=== PATIENT | male | born 1995 | race Caucasian/White ===

== ENCOUNTER 2016-11-25 00:27 | Emergency (ER) | payer OTHER ==
--- NOTE | 2016-11-25 00:30 | PDOC ---
History of Present Illness - General Chief Complaint: Rash Stated Complaint: POSSIBLE INFECTION OF TATOO Time Seen by Provider: 11/25/16 00:30 - History of Present Illness Initial Comments: This otherwise healthy 21-year-old man presents with itching and mild rash around newly placed tattoo of the right forearm. Patient had a tattoo placed on the mid dorsum of the right forearm approximately 3-1/2 weeks ago. In the last several days, he has had itchiness and mildly erythematous scattered rash around the area of the tattoo. Patient had tattoo of the volar aspect of the right forearm approximately 4-1/2 weeks ago. This tattoo has no rash or itchiness. No edema/increased warmth/generalized erythema present around either tattoo. Patient has no fever/chills or other systemic complaints. Patient states that he has similar pruritic rash on sun exposed areas during the summer. Rash can be avoided if he uses sunscreen. No other history of contact dermatitis or other dermatologic issues. No history of poor wound healing or immunocompromise. No history of resistant organism infection or colonization. Past History - Past Medical History Allergies/Adverse Reactions: Allergies Allergy/AdvReac Type Severity Reaction Status Date / Time No Known Allergies Allergy Verified 11/25/16 00:29 Home Medications: Ambulatory Orders Clobetasol Prop 0.05% Top Cr [Temovate (Nf)] 30 gm TP BID #1 tube 11/25/16 - Immunization History Immunization Up to Date: Yes - Psycho/Social/Smoking Cessation Hx Anxiety: No Suicidal Ideation: No Smoking Status: No Smoking History: Current some day smoker Have you smoked in the past 12 months: Yes Number of Cigarettes Smoked Daily: 1 'Breaking Loose' booklet given: 03/18/16 Hx Alcohol Use: No Drug/Substance Use Hx: No Substance Use Type: None Review of Systems - Review of Systems Able to Perform ROS?: Yes Comments:: 12 point review of systems is negative except for what is noted in the history of present illness *Physical Exam - Physical Exam Comments: GENERAL: The patient is awake, alert, and fully oriented, in no acute distress. Vital signs as noted. EXTREMITIES: Normal range of motion, no edema. No clubbing or cyanosis. No cords, erythema, or tenderness. NEUROLOGICAL: Cranial nerves II through XII grossly intact. Normal speech, normal gait. PSYCH: Normal mood, normal affect. SKIN: Right forearmScattered, mildly erythematous small papules around mid dorsal forearm tattoo No edema/generalized erythema/increased warmth/ lymphangitic streaking from dorsal tattoo Tattoo on volar aspect of right forearm has no papular rash No other rash or other skin lesion evident Progress Note - Progress Note Progress Note: Clinical presentation most consistent with localized ALLERGIC dermatitis in area of new tattoo. Since the patient has another tattoo of the volar aspect of forearm (placed approximately one month ago by other artist color separation)which is not inflamed/pruritic, ALLERGIC reaction may be related to the ink content or other aspect of the new tattoo. Clobetasol 0.5% twice a day cream to the area will be prescribed. Patient should return here if there is swelling, redness or increased pain in the area of the rash. He should follow-up with his doctor within 1 week. *DC/Admit/Observation/Transfer Diagnosis at time of Disposition: Allergic dermatitis - Discharge Dispostion Disposition: HOME Condition at time of disposition: Stable - Prescriptions Prescriptions: Clobetasol Prop 0.05% Top Cr [Temovate (Nf)] 30 gm TP BID #1 tube - Patient Instructions Printed Discharge Instructions: Contact Dermatitis Additional Instructions: Clobetasol cream 0.05% twice a day to itchy area for 2 weeks Return here or see your doctor if area becomes red/swollen/painful Follow-up with your doctor within 1 week
[2016-11-25 00:34] VITALS: BP 111/63; PULSE 78; TEMP 99.4; BMI 60.7
== END 2016-11-25 00:48 | disposition home or self-care (01) ==
LOC: FER 00:27
DX: L23.9 Allergic contact dermatitis, unspecified cause (principal); F17.210 Nicotine dependence, cigarettes, uncomplicated
CPT/HCPCS: 99281-25

== ENCOUNTER 2018-01-31 06:01 | Emergency (ER) | payer OTHER ==
[2018-01-31 06:10] VITALS: BP 155/97; PULSE 72; TEMP 97.9; BMI 62.0
[2018-01-31] MEDS ORDERED: diphenhydrAMINE HCL 50 MG CAPSULE PO ONE (06:33)
[2018-01-31] MEDS ORDERED: predniSONE 20 MG TABLET (UD) PO ONE (06:33)
[2018-01-31] MEDS ORDERED: diphenhydrAMINE HCL 50 MG CAPSULE ONE (06:33)
[2018-01-31] MEDS ORDERED: predniSONE 20 MG TABLET (UD) ONE (06:34)
--- NOTE | 2018-01-31 06:37 | PDOC ---
History of Present Illness - General Chief Complaint: Edema Stated Complaint: FEELS LIKE LIPS ARE SWOLLEN Time Seen by Provider: 01/31/18 06:15 History Source: Patient Exam Limitations: No Limitations - History of Present Illness Initial Comments: 01/31/18 06:39 This is a male who comes in complaining of some itching and swelling of his upper lip. Patient said 6 hours ago he ate hotdogs rice chicken and hot sauce and after eating that he developed the symptoms. Patient denied any shortness of breath or sensation his throat was swelling but said that his voice was briefly very raspy but now those symptoms have resolved. Patient denies history of similar symptoms in the past. Patient says he has eaten all of those foods before. He denies any shortness of breath or abdominal pain or discomfort. There is been no nausea vomiting or diarrhea. PAST MEDICAL HISTORY: no significant history PAST SURGICAL HISTORY: no significant history FAMILY HISTORY: no pertinant history SOCIAL HISTORY: Pt lives with family and is employed. MEDICATIONS: reviewed ALLERGIES: As per nursing notes Review of Systems General: No fevers or chills, no weakness, obesity HEENT: No change in vision. No sore throat,. No ear pain, swollen lip as per history of present illness CardioVascular: No chest pain or shortness of breath Respiratory:No cough, or wheezing. Gastrointestinal: no nausea, vomitting, diarrhea or constipation, No rectal bleeding Genitourinary: No dysuria, hematuria, or frequency Musculoskeletal: No joint or muscle pain or swelling Neurologic: No headache, vertigo, dizziness or loss of consciousness Psychiatric: nor depression Skin: No rashes or easy bruising Endocrine: no increased thirst or abnormal weight change Allergic: no skin or latex allergy All other systems reviewed: And negative Exam: General: Morbidly obese, well-developed individual, no acute distress HEENT: Throat: There is some mild erythema otherwise there is no angioedema of the posterior oropharynx. However there is some angioedema of the upper lip. Neck: Supple, no meningeal signs, no lymphadenopathy Eyes::Pupils equal reactive and round, extraocular motion intact Chest: Nontender to palpation Cardiac: S1-S2 normal, regular rate and rhythm, no murmurs rubs or gallops Respiratory: Lungs clear to auscultation bilateral Abdomen: Soft, nondistended, normal bowel sounds, nontender to palpation diffusely Extremities: Warm, dry, no cyanosis, clubbing, or edema Skin: No rashes Neuro: Alert and oriented x3, CN II - XII intact, nonfocal exam with normal strength, normal sensation, normal reflexes, normal gait, Psych: Normal mood and affect Care of this patient was transferred to Dr. Epps at 7 AM. Case discussed in detail with oncoming Emergency Physician including history, physical exam and ancillary studies. Oncoming Emergency Physician has assumed care for the patient and will complete the evaluation and treatment. Patient is aware of the plan. Pt is clinically unchanged and stable. 01/31/18 06:44 Past History - Past Medical History Allergies/Adverse Reactions: Allergies Allergy/AdvReac Type Severity Reaction Status Date / Time No Known Allergies Allergy Verified 11/25/16 00:29 Home Medications: Ambulatory Orders NK [No Known Home Medication] 01/31/18 COPD: No - Immunization History Immunization Up to Date: Yes - Suicide/Smoking/Psychosocial Hx Smoking Status: No Smoking History: Current some day smoker Have you smoked in the past 12 months: Yes Number of Cigarettes Smoked Daily: 3 Information on smoking cessation initiated: Yes 'Breaking Loose' booklet given: 01/31/18 Hx Alcohol Use: No Drug/Substance Use Hx: No Substance Use Type: None *Physical Exam - Vital Signs Last Vital Signs Temp Pulse Resp BP Pulse Ox 97.9 F 72 16 155/97 99 01/31/18 06:04 01/31/18 06:04 01/31/18 06:04 01/31/18 06:04 01/31/18 06:04 *DC/Admit/Observation/Transfer - Discharge Dispostion Condition at time of disposition: Stable - Referrals - Patient Instructions - Post Discharge Activity
--- NOTE | 2018-01-31 07:08 | PDOC ---
*Physical Exam - Vital Signs Last Vital Signs Temp Pulse Resp BP Pulse Ox 97.9 F 72 16 155/97 99 01/31/18 06:04 01/31/18 06:04 01/31/18 06:04 01/31/18 06:04 01/31/18 06:04 - Physical Exam Comments: 01/31/18 07:44 Gen: aaox3, nad, speaking in full sentences, tolerating secretions heent: eomi, perrl, no lip or tongue swellig, uvual midline, no oral swelling, no stridor heart: +s1s2 reg lungs: cta b/l abd: soft, nt/nd obese ext: no c/c/e ED Treatment Course - Medications Given in the ED: ED Medications Discontinued Medications Generic Name Dose Route Start Last Admin Trade Name Freq PRN Reason Stop Dose Admin Diphenhydramine HCl 50 mg 01/31/18 06:33 01/31/18 06:35 Benadryl - PO 01/31/18 06:34 50 mg ONCE ONE Administration Prednisone 60 mg 01/31/18 06:33 01/31/18 06:35 Deltasone - PO 01/31/18 06:34 60 mg ONCE ONE Administration Medical Decision Making - Medical Decision Making 01/31/18 07:45 a/p: 22yo male with upper lip swelling and itching pt signed out by the prior attneding for allergic reaction -on re-eval: swelling resolved. itching resolved pt was given benadryl and prednisone pt feels better denies new foods, lotions, soaps had hot sauce last night concern for allergic reaction will give medrol dose pack and benadyrl/pepcid for discharge discussed epipen use discussed angioedema and anaphylaxis with the patient in detail discussed allergy follow up answered all questions pt requesting to go home stable for d/c to home at this time. *DC/Admit/Observation/Transfer Diagnosis at time of Disposition: Allergic reaction - Discharge Dispostion Disposition: HOME Condition at time of disposition: Stable Decision to Admit order: No - Prescriptions Prescriptions: Diphenhydramine HCl [Benadryl -] 25 mg PO Q6H PRN #28 capsule PRN Reason: For Itching EPINEPHrine (EPI-PEN 0.3MG) [Epipen 0.3MG -] 0.3 mg IM ASDIR #2 pens Famotidine [Pepcid -] 20 mg PO DAILY #7 tablet Methylprednisolone [Medrol Dose Rod] 4 mg PO ASDIR #21 tablet - Referrals Referrals: hSashank Mahmood MD [Staff Physician] - - Patient Instructions Printed Discharge Instructions: DI for Food Allergy Additional Instructions: Please take all medications as prescribed. Please start the medrol dose rod tomorrow. Please use benadryl as needed for the itching. Please make an appointment to see the wire charger this week. If you feel your throat closing or difficulty breathing please use the epipen and call [phone]. Please return to the ED with any further concerns or complaints. Please follow up with your PMD this week. - Post Discharge Activity - Attestations Physician Attestion: 01/31/18 07:50 I, Dr. Corinne Epps, DO, attest that this document has been prepared under my direction and personally reviewed by me in its entirety. I further attest, that it accurately reflects all work, treatment, procedures and medical decision -making performed by me.
== END 2018-01-31 07:52 | disposition home or self-care (01) ==
LOC: FER 06:01
DX: T78.40XA Allergy, unspecified, initial encounter (principal); F17.210 Nicotine dependence, cigarettes, uncomplicated
CPT/HCPCS: 99282-25

== ENCOUNTER 2021-06-05 22:26 | Emergency (ER) | payer OTHER ==
[2021-06-05 22:53] VITALS: BP 132/76; PULSE 83; TEMP 98.8; BMI 62.6
[2021-06-05] MEDS ORDERED: SODIUM CHLORIDE 1,000 ML IV STA (23:02)
[2021-06-05 23:33] LABS: ALBUMIN 4.4 g/dl (3.4-5.0); BILIRUBIN,TOTAL 1.2 mg/dl (0.2-1); CALCIUM 9.2 mg/dl (8.5-10); CREATININE 0.6 mg/dl (0.55-1.3); TOT PROT 7.3 g/dl (6.4-8.2)
[2021-06-06] MEDS ORDERED: ACETAMINOPHEN 1000 MG/100 ML BAG IVPB ONE (00:23)
[2021-06-06] MEDS ORDERED: ACETAMINOPHEN INJECTION 100 ML IVPB ONE (00:28)
[2021-06-06] MEDS ORDERED: POTASSIUM CHLORIDE TABS 20 MEQ TABLET.ER (FP) PO ONE ×2 (00:29→00:31)
[2021-06-06 01:10] LABS: BASO % 0.2 % (0-2.0)
[2021-06-06 01:12] LABS: HEMOGLOBIN 14.8 GM/dL (11.7-16.9); LYMPH % 10.6 % (8-40); MCH 28.8 pg (25.7-33.7); MCHC 34.4 g/dl (32.0-35.9); MEAN CELL VOLUME 83.7 fl (80-96); MEAN PLT VOLUME 10.5 fl (7.5-11.1); NEUT % 80.2 % (42.8-82.8); PLATELET COUNT 205 10^3/uL (134-434); RBC 5.13 M/mm3 (4.00-5.60); RDW 15.5 % (11.9-15.9); WHITE BLOOD COUNT 11.9 K/mm3 (4.0-10.0)
[2021-06-10 03:06] LABS: SARS-CoV-2 NAA Detected (Not Detected)
== END 2021-06-06 01:33 | disposition home or self-care (01) ==
LOC: FER 22:26
PROC: 3E0333Z Introduction of Anti-inflammatory into Peripheral Vein, Percutaneous Approach (ICD-10-PCS; principal; 2021-06-05)
PROC: 3E0337Z Introduction of Electrolytic and Water Balance Substance into Peripheral Vein, Percutaneous Approach (ICD-10-PCS; 2021-06-05)
DX: R07.9 Chest pain, unspecified (principal); R06.02 Shortness of breath; F14.90 Cocaine use, unspecified, uncomplicated
CPT/HCPCS: 36415; 71045-TC-FY; 80053; 82550; 84484; 85025; 93005; 99285-25; C9803-CS; U0003; U0005

== ENCOUNTER 2021-07-12 01:56 | Emergency (ER) | payer OTHER ==
[2021-07-12 02:11] VITALS: BP 135/80; PULSE 80; TEMP 99; BMI 62.6
[2021-07-12] MEDS ORDERED: SODIUM CHLORIDE 1,000 ML IV STA (02:27)
[2021-07-12] MEDS ORDERED: ONDANSETRON 4 MG/2 ML VIAL IVPUSH ONE (02:27)
[2021-07-12] MEDS ORDERED: ONDANSETRON 4 MG/2 ML VIAL ONE (02:30)
[2021-07-12 03:29] LABS: BASO % 0.3 % (0-2.0); EOS % 0.2 % (0-4.5); HEMATOCRIT 45.4 % (35.4-49); HEMOGLOBIN 15.6 GM/dL (11.7-16.9); LYMPH % 11.2 % (8-40); MCH 29.2 pg (25.7-33.7); MCHC 34.4 g/dl (32.0-35.9); MEAN CELL VOLUME 84.7 fl (80-96); MEAN PLT VOLUME 10.2 fl (7.5-11.1); MONO % 4.4 % (3.8-10.2); NEUT % 83.9 % (42.8-82.8); PLATELET COUNT 242 10^3/uL (134-434); RBC 5.35 M/mm3 (4.00-5.60); RDW 16.3 % (11.9-15.9); WHITE BLOOD COUNT 10.6 K/mm3 (4.0-10.0)
[2021-07-12 03:57] LABS: CALCIUM 9.3 mg/dL (8.5-10.1)
[2021-07-12 03:58] LABS: BLOOD UREA NITROGEN 5.1 mg/dL (7-18)
[2021-07-12 04:01] LABS: CREATININE 0.6 mg/dL (0.55-1.3)
[2021-07-12 04:02] LABS: BILIRUBIN,TOTAL 0.7 mg/dL (0.2-1); TOT PROT 7.4 g/dl (6.4-8.2)
== END 2021-07-12 04:15 | disposition home or self-care (01) ==
LOC: FER 01:56
PROC: 3E033NZ Introduction of Analgesics, Hypnotics, Sedatives into Peripheral Vein, Percutaneous Approach (ICD-10-PCS; principal; 2021-07-12)
PROC: 3E0337Z Introduction of Electrolytic and Water Balance Substance into Peripheral Vein, Percutaneous Approach (ICD-10-PCS; 2021-07-12)
DX: R11.2 Nausea with vomiting, unspecified (principal)
CPT/HCPCS: 36415; 80053; 85025; 99284-25

== ENCOUNTER 2021-08-20 12:23 | Emergency (ER) | payer OTHER ==
[2021-08-20 12:33] VITALS: BP 143/87; PULSE 75; TEMP 97.8; BMI 51.7
[2021-08-20] MEDS ORDERED: ACETAMINOPHEN 325 MG TABLET (FP) PO ONE (13:02)
[2021-08-20] MEDS ORDERED: ACETAMINOPHEN 325 MG TABLET (FP) ONE (13:04)
[2021-08-20 13:31] LABS: ALBUMIN 3.8 g/dl (3.4-5.0); BILIRUBIN,TOTAL 1.5 mg/dl (0.2-1); CALCIUM 8.9 mg/dl (8.5-10); CREATININE 0.6 mg/dl (0.55-1.3); TOT PROT 6.9 g/dl (6.4-8.2)
[2021-08-20] MEDS ORDERED: LIDOCAINE 5% TOPICAL PATCH TP ONE (13:31)
[2021-08-20] MEDS ORDERED: METHOCARBAMOL 500 MG TABLET PO ONE (13:32)
[2021-08-20] MEDS ORDERED: LIDOCAINE 5% TOPICAL PATCH ONE (13:32)
[2021-08-20] MEDS ORDERED: METHOCARBAMOL 500 MG TABLET ONE (13:33)
[2021-08-20] MEDS ORDERED: SODIUM CHLORIDE 0.9% 1000 ML INFUS.BAG IV ONE (13:34)
[2021-08-20] MEDS ORDERED: ONDANSETRON 4 MG/2 ML VIAL IVPUSH ONE (13:35)
[2021-08-20] MEDS ORDERED: ONDANSETRON 4 MG/2 ML VIAL ONE (13:35)
[2021-08-20 13:41] LABS: EPITHELIAL CELLS FEW /hpf
[2021-08-20] MEDS ORDERED: POTASSIUM CHLORIDE TABS 20 MEQ TABLET.ER (FP) PO ONE ×2 (14:17→14:19)
[2021-08-20] MEDS ORDERED: KETOROLAC TROMETHAMINE 15 MG/ML VIAL IVPUSH ONE (14:17)
[2021-08-20] MEDS ORDERED: KETOROLAC TROMETHAMINE 15 MG/ML VIAL ONE (14:19)
[2021-08-20 15:28] LABS: BASO % 0.4 % (0-2.0); EOS % 0.3 % (0-4.5); HEMATOCRIT 43.7 % (35.4-49); HEMOGLOBIN 14.9 GM/dL (11.7-16.9); LYMPH % 15.9 % (8-40); MEAN CELL VOLUME 88.1 fl (80-96); MEAN PLT VOLUME 10.7 fl (7.5-11.1); NEUT % 76.4 % (42.8-82.8); PLATELET COUNT 233 10^3/uL (134-434); RBC 4.96 M/mm3 (4.00-5.60); RDW 16.4 % (11.9-15.9); WHITE BLOOD COUNT 10.4 K/mm3 (4.0-10.0)
[2021-08-20 16:42] LABS: ALBUMIN 3.5 g/dl (3.4-5.0); BILIRUBIN,TOTAL 1.3 mg/dl (0.2-1); CALCIUM 8.3 mg/dl (8.5-10); CREATININE 0.7 mg/dl (0.55-1.3); TOT PROT 6.5 g/dl (6.4-8.2)
[2021-08-20 17:13] LABS: BASO % 0.3 % (0-2.0); EOS % 0.1 % (0-4.5); HEMATOCRIT 42.6 % (35.4-49); HEMOGLOBIN 14.1 GM/dL (11.7-16.9); LYMPH % 10.5 % (8-40); MCH 29.3 pg (25.7-33.7); MEAN CELL VOLUME 88.7 fl (80-96); MEAN PLT VOLUME 10.6 fl (7.5-11.1); NEUT % 83.1 % (42.8-82.8); PLATELET COUNT 225 10^3/uL (134-434); RDW 16.3 % (11.9-15.9); WHITE BLOOD COUNT 12.6 K/mm3 (4.0-10.0)
[2021-08-20] MEDS ORDERED: LIDOCAINE PATCH REMOVAL MC SCH (22:00)
== END 2021-08-20 17:58 | disposition home or self-care (01) ==
LOC: FER 12:23
PROC: 3E0333Z Introduction of Anti-inflammatory into Peripheral Vein, Percutaneous Approach (ICD-10-PCS; principal; 2021-08-20)
PROC: 3E033GC Introduction of Other Therapeutic Substance into Peripheral Vein, Percutaneous Approach (ICD-10-PCS; 2021-08-20)
DX: M54.50 Low back pain, unspecified (principal); R31.9 Hematuria, unspecified; E86.0 Dehydration; W01.0XXA Fall on same level from slipping, tripping and stumbling without subsequent striking against object, initial encounter
CPT/HCPCS: 36415; 74176-TC; 80053; 81003; 81015; 85025; 87086; 99284-25

== ENCOUNTER 2022-04-06 05:13 | Emergency (ER) | payer OTHER ==
[2022-04-06 05:21] VITALS: BP 131/76; PULSE 86; RESP 16; TEMP 99; BMI 30.2
[2022-04-06] MEDS ORDERED: DIPHTH,PERTUSS(ACELL),TET 0.5 ML DISP.SYRIN IM ONE ×2 (05:41→05:45)
[2022-04-06] MEDS ORDERED: KETOROLAC TROMETHAMINE 30 MG/1 ML VIAL IM ONE (05:52)
[2022-04-06] MEDS ORDERED: KETOROLAC TROMETHAMINE 30 MG/1 ML VIAL ONE (05:55)
== END 2022-04-06 07:07 | disposition home or self-care (01) ==
LOC: FER 05:13
PROC: 0HQKXZZ Repair Right Lower Leg Skin, External Approach (ICD-10-PCS; principal; 2022-04-06)
PROC: 3E0234Z Introduction of Serum, Toxoid and Vaccine into Muscle, Percutaneous Approach (ICD-10-PCS; 2022-04-06)
PROC: 3E0233Z Introduction of Anti-inflammatory into Muscle, Percutaneous Approach (ICD-10-PCS; 2022-04-06)
DX: S91.011A Laceration without foreign body, right ankle, initial encounter (principal)
CPT/HCPCS: 12001-25; 73610-TC-RT-FY; 90471; 90715; 96372; 99284-25

== ENCOUNTER 2022-10-23 13:34 | Emergency (ER) | payer OTHER ==
[2022-10-23] MEDS ORDERED: DIPHTH,PERTUSS(ACELL),TET 0.5 ML DISP.SYRIN IM ONE (14:09)
[2022-10-23 14:12] VITALS: BP 131/94; PULSE 83; RESP 16; TEMP 98.6; BMI 30.7
== END 2022-10-23 17:55 | disposition home or self-care (01) ==
LOC: FER 13:34
DX: S00.81XA Abrasion of other part of head, initial encounter (principal); S50.812A Abrasion of left forearm, initial encounter; W22.8XXA Striking against or struck by other objects, initial encounter; X99.8XXA Assault by other sharp object, initial encounter
CPT/HCPCS: 70450-TC; 70486-TC; 72125-TC; 93005; 99285-25